=== PATIENT | female | born 1995 | race Caucasian/White ===

== ENCOUNTER 2017-04-11 23:40 | Emergency (ER) | payer OTHER ==
[~2017-04-11] VITALS: Ht 172.7 cm; Wt 56.7 kg
[2017-04-12] MEDS ORDERED: KEFLEX500 MG ORAL (00:15)
[2017-04-12] MEDS ORDERED: Cephalexin 500mg cap ORAL ONE (00:15)
--- NOTE | 2017-04-12 00:16 | Emergency Room Report ---
History of Present Illness General Chief Complaint: Female Urogenital Problems Source: Patient Present Illness HPI Is a 22-year-old female with chief complaint of urinary frequency and urgency. Onset for last 3 days. No hematuria. No back pain. No nausea no vomiting. Has history UTI in the past. She said she complaining of infected ingrown toenail. She gets this frequently. Is irritated. To the right great toe. She had partial nail removal before. Pain is severe Allergies: Coded Allergies: CLINDAMYCIN (Verified Allergy, Unknown, 04/11/17) IBUPROFEN (Verified Allergy, Unknown, 04/11/17) Patient History Past Medical History: see triage record, old chart reviewed Past Surgical History: none Pertinent Family History: none Social History: Denies: smoking Last Menstrual Period: 04/04/17 Now: No : 0 Para: 0 Immunizations: other Reviewed Nursing Documentation: PMH: Agreed, PSxH: Agreed Nursing Documentation-PMH Past Medical History: No History, Except For Hx Asthma: Yes Review of Systems Eye: Denies: eye pain, blurred vision ENT: Denies: ear pain, nose congestion, throat swelling Respiratory: Denies: cough, shortness of breath Cardiovascular: Denies: chest pain, palpitations Gastrointestinal: Denies: abdominal pain, diarrhea, nausea, vomiting Genitourinary: Reports: dysuria, frequency, urgency Musculoskeletal: Denies: back pain, joint pain Skin: Denies: rash Neurological: Denies: headache, numbness Endocrine: Denies: increased thirst, increased urine Hematologic/Lymphatic: Denies: easy bruising All Other Systems: negative except mentioned in HPI Physical Exam Vital Signs Date Time Temp Pulse Resp B/P (MAP) Pulse Ox O2 Delivery O2 Flow Rate FiO2 04/11/17 23:44 98.2 72 18 113/67 100 Room Air vitals normal Sp02 EP Interpretation: reviewed, normal General Appearance: well appearing, no apparent distress, alert Head: normocephalic, atraumatic Eyes: bilateral eye PERRL, bilateral eye EOMI ENT: hearing grossly normal, normal pharynx Neck: full range of motion, supple, no meningismus Respiratory: chest non-tender, lungs clear, normal breath sounds Cardiovascular #1: regular rate, rhythm, no murmur Gastrointestinal: normal bowel sounds, non tender, no mass, no organomegaly, no bruit, non-distended Musculoskeletal: back normal, gait/station normal, normal range of motion, other - Right great toe: There is irritation and mild discharge on the lateral aspect. Neurologic: alert, oriented x3 Psychiatric: mood/affect normal Skin: warm/dry Medical Decision Making Diagnostic Impression: Primary Impression: UTI (urinary tract infection) Qualified Codes: N30.00 - Acute cystitis without hematuria Additional Impression: Ingrown toenail of right foot with infection ER Course Patient with UTI. No evidence of pyelonephritis. She is in mild infected ingrown toenail. She does not want me to do procedure and it for now. Went to see if the antibiotics will help. Will return if not better. Last Vital Signs Date Time Temp Pulse Resp B/P (MAP) Pulse Ox O2 Delivery O2 Flow Rate FiO2 04/11/17 23:44 98.2 72 18 113/67 100 Room Air Status: improved Disposition: HOME, SELF-CARE Condition: Stable Scripts Cephalexin* (KEFLEX*) 500 Mg Capsule 500 MG ORAL TID, #21 CAP 0 Refills Prov: SHAHNAZ WOODALL M.D. 04/12/17 Patient Instructions: Urinary Tract Infection Additional Instructions: Followup with your DrHelen in 2-3 days. Return if symptom worsen. SHAHNAZ WOODALL M.D. Apr 12, 2017 00:16
[2017-04-12 00:20] VITALS: BP 113/67
== END 2017-04-12 00:20 | disposition home or self-care (01) ==
LOC: EMR 23:55
DX: N39.0 Urinary tract infection, site not specified (principal); L60.0 Ingrowing nail; J45.909 Unspecified asthma, uncomplicated; Z88.6 Allergy status to analgesic agent; Z88.1 Allergy status to other antibiotic agents
CPT/HCPCS: 99283

== ENCOUNTER 2017-04-23 23:33 | Emergency (ER) | payer OTHER ==
[~2017-04-23] VITALS: Ht 172.7 cm; Wt 56.7 kg
[~2017-04-23 23:33] MED LIST: KEFLEX500 MG ORAL
[2017-04-24] MEDS ORDERED: Fluconazole 100mg tab ORAL ONE (00:30)
[2017-04-24 00:38] VITALS: BP 125/66
[2017-04-24 00:39] VITALS: BP 1/1
--- NOTE | 2017-04-30 07:14 | Emergency Room Report ---
History of Present Illness General Chief Complaint: Female Urogenital Problems Source: Patient Present Illness HPI Patient is a 22-year-old female presented after increased vaginal discharge. Patient reported having recent urinary tract infection. Patient been started on antibiotics. She reported the dysuria is somewhat improved. She reports having increased thick white discharge. She thinks that she may have yeast infection. She denies any fever. She had not been vomiting. She denied any flank pain. Allergies: Coded Allergies: CLINDAMYCIN (Verified Allergy, Unknown, 04/11/17) IBUPROFEN (Verified Allergy, Unknown, 04/11/17) Patient History Past Medical History: see triage record Last Menstrual Period: 04/20/17 Now: No Reviewed Nursing Documentation: PMH: Agreed, PSxH: Agreed Nursing Documentation-PMH Past Medical History: No Stated History Hx Asthma: Yes Review of Systems All Other Systems: negative except mentioned in HPI Physical Exam Vital Signs Date Time Temp Pulse Resp B/P (MAP) Pulse Ox O2 Delivery O2 Flow Rate FiO2 04/23/17 23:52 98.2 74 15 125/66 99 Room Air Sp02 EP Interpretation: reviewed, normal General Appearance: normal inspection, well appearing, no apparent distress, alert, GCS 15 Head: atraumatic ENT: normal ENT inspection, hearing grossly normal, normal voice Neck: normal inspection, full range of motion, supple, no bony tend Respiratory: normal inspection, lungs clear, normal breath sounds, no respiratory distress, no retraction, no wheezing Cardiovascular #1: regular rate, rhythm, no edema Gastrointestinal: normal inspection, normal bowel sounds, non tender, soft, no guarding, no hernia Genitourinary: no CVA tenderness Musculoskeletal: normal inspection, back normal, normal range of motion Neurologic: normal inspection, alert, oriented x3, responsive, crop picker III-XII nml as tested, speech normal Psychiatric: normal inspection, judgement/insight normal, mood/affect normal Skin: normal inspection, normal color, no rash Medical Decision Making Diagnostic Impression: Primary Impression: Vaginitis ER Course Patient presented for dysuria. Differential diagnosis included was not limited to appendicitis, yeast infection, urinary tract infection, pelvic inflammatory disease, urethritis, herpes among others. The patient is being treated for a yeast infection. Patient is advised to have outpatient STD testing.The patient is advised to follow up with primary care doctor in 1-2 days. Patient is advised to return if any worsening condition or if any changes in status that are concerning. This report is dictated with [employer] senior wind energy consultant software which may occasionally lead to discrepancies related to use of this software. Last Vital Signs Date Time Temp Pulse Resp B/P (MAP) Pulse Ox O2 Delivery O2 Flow Rate FiO2 04/24/17 00:39 04/1704/24/17 00:38 98.2 15 99 Room Air 04/23/17 23:52 74 Status: improved Disposition: HOME, SELF-CARE Condition: Improved Referrals: [facility] RODRIG[facility],REFERERNA (PCP) Liam Pan DPM Patient Instructions: Ingrown Toenail, Vaginal Yeast Infection, Adult Nikolai Bailey Apr 30, 2017 07:14
== END 2017-04-24 00:40 | disposition home or self-care (01) ==
LOC: EMR 23:59
DX: N76.0 Acute vaginitis (principal); J45.909 Unspecified asthma, uncomplicated; Z88.6 Allergy status to analgesic agent; Z88.1 Allergy status to other antibiotic agents
CPT/HCPCS: 99283

== ENCOUNTER 2017-05-03 22:07 | Emergency (ER) | payer OTHER ==
[~2017-05-03] VITALS: Ht 172.7 cm; Wt 54.4 kg
[2017-05-03 22:30] VITALS: BP 110/68
[2017-05-03 22:43] LABS: APPEARANCE,URINE SLIGHTLY CLOUDY; BILIRUBIN, URINE NEGATIVE (NEGATIVE); COLOR,URINE YELLOW; GLUCOSE, URINE (UA) NEGATIVE (NEGATIVE); KETONES,URINE NEGATIVE (NEGATIVE); LEUKOCYTE ESTERASE ,URINE 1+ (NEGATIVE); NITRITE,URINE NEGATIVE (NEGATIVE); PH,URINE 7 (4.5-8.0); PROTEIN,URINE NEGATIVE (NEGATIVE); UROBILINOGEN,URINE 1 MG/DL (0.0-1.0)
--- NOTE | 2017-05-03 23:51 | Emergency Room Report ---
History of Present Illness General Chief Complaint: Female Urogenital Problems Source: Patient Present Illness HPI Is a 22-year-old female presents with chief complaint of dysuria. Onset for last 2 weeks. She was here 2 weeks ago for UTI symptoms. Her treat her with Keflex. She said she is infection and took a Diflucan. Symptom is still there. Her in sensation and discomfort with urination. Whitish discharge. No fever or chills. No nausea no vomiting. She had STD check about a month ago and everything was normal per patient. Denies any other complaint. No vaginal bleeding. No rash. Allergies: Coded Allergies: CLINDAMYCIN (Verified Allergy, Unknown, 04/11/17) IBUPROFEN (Verified Allergy, Unknown, 04/11/17) Patient History Past Medical History: see triage record, old chart reviewed Past Surgical History: none Pertinent Family History: none Social History: Denies: smoking Last Menstrual Period: 03/21/17 Now: No Immunizations: other Reviewed Nursing Documentation: PMH: Agreed, PSxH: Agreed Nursing Documentation-PMH Hx Asthma: Yes Review of Systems Eye: Denies: eye pain, blurred vision ENT: Denies: ear pain, nose congestion, throat swelling Respiratory: Denies: cough, shortness of breath Cardiovascular: Denies: chest pain, palpitations Gastrointestinal: Denies: abdominal pain, diarrhea, nausea, vomiting Genitourinary: Reports: dysuria Musculoskeletal: Denies: back pain, joint pain Skin: Denies: rash Neurological: Denies: headache, numbness Endocrine: Denies: increased thirst, increased urine Hematologic/Lymphatic: Denies: easy bruising All Other Systems: negative except mentioned in HPI Physical Exam Vital Signs Date Time Temp Pulse Resp B/P (MAP) Pulse Ox O2 Delivery O2 Flow Rate FiO2 05/03/17 22:23 98.2 76 20 105/63 97 Room Air vitals normal Sp02 EP Interpretation: reviewed, normal General Appearance: well appearing, no apparent distress, alert Head: normocephalic, atraumatic Eyes: bilateral eye PERRL, bilateral eye EOMI ENT: hearing grossly normal, normal pharynx Neck: full range of motion, supple, no meningismus Respiratory: chest non-tender, lungs clear, normal breath sounds Cardiovascular #1: regular rate, rhythm, no murmur Gastrointestinal: normal bowel sounds, non tender, no mass, no organomegaly, no bruit, non-distended Genitourinary: other - Pelvic exam done with female nurse as career technical supervisor. External exam normal. No rash. Internal exam show whitish discharge and thick white discharge on cervix. No adnexal mass. No cervical motion tenderness. Musculoskeletal: back normal, gait/station normal, normal range of motion Neurologic: alert, oriented x3 Psychiatric: mood/affect normal Skin: warm/dry Medical Decision Making Diagnostic Impression: Primary Impression: Bacterial vaginosis ER Course Patient with dysuria and has bacterial vaginosis. No evidence of urinary tract infection. No evidence of ectopic . We'll discharge home. Last Vital Signs Date Time Temp Pulse Resp B/P (MAP) Pulse Ox O2 Delivery O2 Flow Rate FiO2 05/03/17 22:30 98.1 77 18 110/68 99 Room Air Status: improved Disposition: HOME, SELF-CARE Condition: Stable Scripts Metronidazole* (FLAGYL*) 500 Mg Tablet 500 MG ORAL BID, #14 TAB Prov: SHAHNAZ WOODALL M.D. 05/04/17 Referrals: EMPLOYEE [facility],REFERRIN (PCP) Additional Instructions: Followup with your DrHelen in 7 days. Return if symptom worsen. No alcohol while on antibiotics. SHAHNAZ WOODALL M.D. May 03, 2017 23:51
[2017-05-04] MEDS ORDERED: METRONIDAZOLE500 MG ORAL (00:15)
[2017-05-04 00:20] VITALS: BP 115/72
[2017-05-04 00:25] VITALS: BP 115/72
== END 2017-05-04 00:25 | disposition home or self-care (01) ==
LOC: EMR 22:41
DX: N76.0 Acute vaginitis (principal); B96.89 Other specified bacterial agents as the cause of diseases classified elsewhere; J45.909 Unspecified asthma, uncomplicated
CPT/HCPCS: 81003; 81025; 87210; 99283

== ENCOUNTER 2017-05-27 23:37 | Emergency (ER) | payer OTHER ==
[~2017-05-27] VITALS: Ht 172.7 cm; Wt 54.4 kg
[~2017-05-27 23:37] MED LIST changes: +METRONIDAZOLE500 MG ORAL
[2017-05-27] MEDS ORDERED: NKM (23:53)
[2017-05-28 00:31] LABS: APPEARANCE,URINE CLEAR; BILIRUBIN, URINE NEGATIVE (NEGATIVE); COLOR,URINE PALE YELLOW; GLUCOSE, URINE (UA) NEGATIVE (NEGATIVE); KETONES,URINE NEGATIVE (NEGATIVE); LEUKOCYTE ESTERASE ,URINE 1+ (NEGATIVE); NITRITE,URINE NEGATIVE (NEGATIVE); PH,URINE 6 (4.5-8.0); PROTEIN,URINE NEGATIVE (NEGATIVE); UROBILINOGEN,URINE NORMAL MG/DL (0.0-1.0)
[2017-05-28] MEDS ORDERED: FLUCONAZOLE150 MG ORAL (01:55)
[2017-05-28] MEDS ORDERED: METRONIDAZOLE500 MG ORAL (01:55)
[2017-05-28 02:00] VITALS: BP 110/74
[2017-05-28 02:01] VITALS: BP 105/68
--- NOTE | 2017-05-28 05:03 | Emergency Room Report ---
History of Present Illness General Chief Complaint: Female Urogenital Problems Source: Patient Present Illness HPI 22-year-old female presents to ED for evaluation. States she's been having vaginal discharge for the last month. States it is watery, notes clumps of white. States she was here approximately one-month ago and was told that she had BV. Was discharged on antibiotics. States the symptoms have not resolved. States there is itchiness. Denies any dysuria or hematuria. No other aggravating relieving factors. Denies any other associated symptoms Allergies: Coded Allergies: CLINDAMYCIN (Verified Allergy, Unknown, 04/11/17) IBUPROFEN (Verified Allergy, Unknown, 04/11/17) Patient History Past Medical History: asthma Past Surgical History: none Pertinent Family History: none Social History: Denies: smoking, alcohol use, drug use Last Menstrual Period: 05/14/17 Now: No - Possible Immunizations: UTD Reviewed Nursing Documentation: PMH: Agreed, PSxH: Agreed Nursing Documentation-PMH Past Medical History: No History, Except For Hx Asthma: Yes Review of Systems All Other Systems: negative except mentioned in HPI Physical Exam Vital Signs Date Time Temp Pulse Resp B/P (MAP) Pulse Ox O2 Delivery O2 Flow Rate FiO2 05/27/17 23:49 98.1 74 16 105/68 99 Room Air Sp02 EP Interpretation: reviewed, normal General Appearance: no apparent distress, alert, GCS 15, non-toxic Head: normocephalic Eyes: bilateral eye normal inspection, bilateral eye PERRL ENT: normal ENT inspection Neck: normal inspection Respiratory: normal inspection Cardiovascular #1: normal inspection Gastrointestinal: normal inspection Rectal: deferred Genitourinary: no CVA tenderness, other - superior court justice present - white discharge noted Musculoskeletal: normal inspection Neurologic: alert, oriented x3, responsive, motor strength/tone normal, sensory intact, speech normal Psychiatric: normal inspection Skin: normal inspection Lymphatic: normal inspection Medical Decision Making Diagnostic Impression: Primary Impression: Vaginitis Qualified Codes: N76.1 - Subacute and chronic vaginitis ER Course Hospital Course 22-year-old female presents ED complaining of discharge unresolved with antibiotics Differential diagnoses include: UTI, cystitis, pyelonephritis Clinical course Patient placed on stretcher. After initial history and physical I ordered UA, urine . UA noted to be unremarkable. Reviewed EMR. wet mount from previous visit showed clue cells. patient subsequently discharged on Flagyl. Therapy Teacher present. We repeated wet mount and at this time shows no evidence of clue cells or other growth. However given persistent discharge we will prescribe another round of antibiotics and fluconazole for clinical yeast infection. I do recommend followup with [facility] if symptoms persist Diagnosis -vaginitis Stable and discharged home with prescriptions for Rx flagyl, fluconazole. Instructed to followup with PMD. Return to ED if symptoms recur or worsen Labs Test 05/27/17 23:54 Urine Color Pale yellow Urine Appearance Clear Urine pH 6 (4.5-8.0) Urine Specific [place] 1.015 (1.005-1.035) Urine Protein Negative (NEGATIVE) Urine Glucose (UA) Negative (NEGATIVE) Urine Ketones Negative (NEGATIVE) Urine Occult Blood Negative (NEGATIVE) Urine Nitrite Negative (NEGATIVE) Urine Bilirubin Negative (NEGATIVE) Urine Urobilinogen Normal MG/DL (0.0-1.0) Urine Leukocyte Esterase 1+ (NEGATIVE) Urine RBC 0-2 /HPF (0 - 2) Urine WBC 2-4 /HPF (0 - 2) Urine Squamous Epithelial Cells Moderate /LPF (NONE/OCC) Urine Bacteria Few /HPF (NONE) Urine HCG, Qualitative Negative Last Vital Signs Date Time Temp Pulse Resp B/P (MAP) Pulse Ox O2 Delivery O2 Flow Rate FiO2 05/28/17 02:01 98.1 16 105/68 99 Room Air 05/28/17 02:00 71 Status: improved Disposition: HOME, SELF-CARE Condition: Stable Scripts Fluconazole (FLUCONAZOLE) 150 Mg Tablet 150 MG ORAL ONCE for 2 Days, #2 TAB Prov: DEJON VOGEL M.D. 05/28/17 Metronidazole* (FLAGYL*) 500 Mg Tablet 500 MG ORAL THREE TIMES A DAY, #21 TAB Prov: DEJON VOGEL M.D. 05/28/17 Patient Instructions: Vaginitis DEJON VOGEL M.D. May 28, 2017 05:03
== END 2017-05-28 02:01 | disposition home or self-care (01) ==
LOC: EMR 05-28 00:10
DX: N76.1 Subacute and chronic vaginitis (principal); J45.909 Unspecified asthma, uncomplicated; Z88.1 Allergy status to other antibiotic agents; Z88.6 Allergy status to analgesic agent
CPT/HCPCS: 81003; 81025; 87210; 99284

== ENCOUNTER 2018-02-21 12:02 | Emergency (ER) | payer OTHER ==
[~2018-02-21] VITALS: Ht 172.7 cm; Wt 54.4 kg
[~2018-02-21 12:02] MED LIST changes: +FLUCONAZOLE150 MG ORAL; +NKM
[2018-02-21 12:09] VITALS: BP 112/71
[2018-02-21] MEDS ORDERED: Acetaminophen 500mg (ES) tab ORAL ONE (12:45)
[2018-02-21] MEDS ORDERED: Benzonatate 100mg Perles ORAL ONE (12:45)
--- NOTE | 2018-02-21 12:47 | Emergency Room Report ---
History of Present Illness General Chief Complaint: Flu Like Symptoms Source: Patient, Medical Record (Giuseppe Connolly) Present Illness HPI 22-year-old female patient presents ER complaining of cough for the past 2 weeks. Patient reports cough with sputum. Denies hemoptysis. Reports feeling congested. Reports cough has been improving however worse at night. Denies recent travel or periods of immobilization. denies history of cancer. Denies smoking. reports chest pain symptoms the past few days, arrives and worse with cough. Reports reproducible. Denies history of heart attack, heart disease. Reports hx of asthma when she was younger, denies use of inhaler or difficulty breathing.. Denies taking medication for relief of symptoms. Denies vomiting. Denies fever, breath, abdominal pain, vomiting, dysuria, hematuria, constipation, diarrhea. Also reports small "bumps" on upper back bilaterally. Reports pruritic. reports use of new soaps and conditioners home. Denies bleeding or drainage. denies blurred vision, eye itchiness or redness. Patient did not complain of eye swelling, contrary to triage report. Denies sore throat. (Giuseppe Connolly) Allergies: Coded Allergies: CLINDAMYCIN (Verified Allergy, Unknown, 04/11/17) IBUPROFEN (Verified Allergy, Unknown, 04/11/17) Patient History Past Medical History: see triage record Last Menstrual Period: 01/29/18 Reviewed Nursing Documentation: PMH: Agreed; PSxH: Agreed (Giuseppe Connolly) Nursing Documentation-PMH Past Medical History: No Stated History Hx Asthma: Yes (Giuseppe Connolly) Review of Systems All Other Systems: negative except mentioned in HPI (Giuseppe Connolly P.Richard) Physical Exam Vital Signs Date Time Temp Pulse Resp B/P (MAP) Pulse Ox O2 Delivery O2 Flow Rate FiO2 02/21/18 12:09 98.2 73 18 112/71 100 Room Air Sp02 EP Interpretation: reviewed, normal General Appearance: well appearing, no apparent distress, alert, GCS 15, non- toxic Head: normocephalic, atraumatic Eyes: bilateral eye normal inspection, bilateral eye PERRL ENT: hearing grossly normal, normal pharynx, no angioedema, normal voice, TMs + canals normal, uvula midline, moist mucus membranes, nasal congestion Neck: full range of motion, no bony tend Respiratory: lungs clear, normal breath sounds, no rhonchi, no respiratory distress, no accessory muscle use, no wheezing, speaking full sentences, other - no stridor, chest tender to palpation, no bony depression, no for shortness, equal and symmetrical chest wall movements Cardiovascular #1: regular rate, rhythm, no edema Gastrointestinal: non tender, soft, no mass, non-distended, no guarding, no rebound Genitourinary: no CVA tenderness Musculoskeletal: back normal, digits/nails normal, gait/station normal, normal range of motion, non-tender, no calf tenderness, Beto's Sign negative Neurologic: alert, oriented x3, responsive, motor strength/tone normal, sensory intact Psychiatric: mood/affect normal Skin: other - 2 mm erythematous macules x4 on posterior upper back, no surrounding erythema or edema, no fluctuance or induration, no blood or ecchymosis Lymphatic: no adenopathy (Giuseppe Connolly.AHelen) Medical Decision Making PA Attestation Dr. Finnegan is my supervising Physician whom patient management has been discussed with. (Giuseppe Connolly P.AHelen) Diagnostic Impression: Primary Impression: Upper respiratory infection Additional Impression: Contact dermatitis ER Course Pt presents to ED c/o cough, small bumps on back. DDX considered but are not limited to influenza, viral URI, pneumonia, MD, strep throat, rhinitis, sinusitis, otitis media, otitis externa, cellulitis, ezcema, contact dermatitis, shingles. On PE, chest is TTP; chest pain likely musculoskeletal in nature secondary to cough, no hx of MD or CHF or heart disease, does not require cardiac workup at this time, low suspicion for MD. Patient instructed to take NSAIDs as needed for pain symptoms. VITAL SIGNS are WNL, patient is afebrile. ER COURSE: physical exam shows small skin irritation on of her back bilaterally consistent with contact dermatitis. Provided patient with hydrocortisone cream. No signs of cellulitis or abscess. Does not require antibiotics at this time. Follow- up with dermatology. AVoid use of new conditioners or soaps with scents or perfumes added. Lungs clear to auscultation, no wheezes, rhonci or rales. patient afebrile. CXR negative for acute disease. Low suspicion for pneumonia. Follow-up in one week if symptoms do not improve discuss antibiotic use. no obvious signs on physical exam consistent with bacterial infection, does not require antibiotics at this time. Likely viral etiology of symptoms. patient did not cough while in the ER. Symptomatic treatment. drink plenty of fluids. Salt water gargles for sore throat. Due to history of asthma patient with albuterol inhaler. Follow-up with primary care provider for further testing and treatment. Patient not wheezing in the ER, does not require breathing treatment currently. Followup with PCP for further treatment and/or referral as needed. ER precautions given. Patient did not cough while in the ER. DISCHARGE: -Rx given for Tylenol/Acetaminophen -Rx given for Tessalon Perles for cough sx. -Rx given for albuterol -Rx given for Sudafed -Rx given for hydrocortisone At this time pt is stable for d/c to home. Patient is resting comfortably, in no acute distress, nontoxic appearing. Patient to take medications as instructed Will provide with patient care instructions and any necessary prescriptions. Care plan and follow-up instructions provided. Patient instructed to follow-up with primary care provider in 3 - 5 days. Patient questions asked and answered. Patient reports understanding and agreement to treatment plan. ER precautions given. Patient instructed to return to ER immediately for any new or worsening of symptoms including but not limited to increasing SOB, persistent fever, intractable vomiting. - Please note that this Emergency Department Report was dictated using [employer] engineer technology software, occasionally this can lead to erroneous entry secondary to interpretation by the dictation equipment. (Giuseppe Connolly P.A.) Chest X-Ray Diagnostic Results Chest X-Ray Diagnostic Results : Chest X-Ray Ordered: Yes # of Views/Limited/Complete: 1 View Indication: Chest Pain EP Interpretation: Yes PA Xray: Interpretation reviewed, by supervising MD, and agrees with findings. Interpretation: no consolidation, no effusion, no pneumothorax, no acute cardiopulmonary disease Impression: No acute disease PA Scribe Text Lemuel Connolly PA-C (Giuseppe Connolly P.A.) Chest X-Ray Diagnostic Results : Electronically Signed by: Van documentation reviewed by and is accurate, Dakota Finnegan MD. (Dakota Finnegan MD) Last Vital Signs Date Time Temp Pulse Resp B/P (MAP) Pulse Ox O2 Delivery O2 Flow Rate FiO2 02/21/18 12:09 98.2 73 18 112/71 100 Room Air Status: improved (Giuseppe Connolly) Disposition: HOME, SELF-CARE Condition: Stable Scripts Hydrocortisone (Hydrocortisone Cream 2.5%) Y Cream.appl 1 APPLIC TP BID, #28 GM Prov: Giuseppe Connolly 02/21/18 D-Methorphan/PE/Acetaminophen (Sudafed PE Pressure+Pain+Cough) 1 Each Tablet 1 EACH PO BID, #24 TAB Prov: Giuseppe Connolly 02/21/18 Albuterol Sulfate* (ALBUTEROL SULFATE MDI*) 8.5 Gm Hfa.aer.ad 2 PUFF INH Q6H, #1 INH 0 Refills Prov: Giuseppe Connolly 02/21/18 Acetaminophen* (TYLENOL EXTRA STRENGTH*) 500 Mg Tablet 500 MG ORAL Q8H PRN for Prn Headache/Temp > 101, #30 TAB 0 Refills Prov: Giuseppe Connolly 02/21/18 Benzonatate* (TESSALON PERLE*) 100 Mg Capsule 100 MG ORAL THREE TIMES A DAY, #30 PERLE Prov: Giuseppe Connolly 02/21/18 Referrals: [facility],REFERRING (PCP) Patient Instructions: Contact Dermatitis, [id number], Costochondritis, Easy- to-Read, Upper Respiratory Infection, Adult, [id number] Additional Instructions: Followup with primary care provider in 3 -5 days. Request referral to dermatology as needed. Do not scratch or itch. Apply cool compresses to affected area. Take medications as directed. Do not apply topical steroid medication to face or skin creases. SE Benadryl drowsiness, do not take prior to drinking, driving, operating heavy machinery. Take Claritin during the day and Benadryl at night for itching symptoms. Patient questions asked and answered. ER precautions given, patient instructed to return to ER immediately for any new or worsening of symptoms. [facility] Giuseppe Connolly Feb 21, 2018 12:47 Dakota Finnegan MD Feb 22, 2018 19:44
[2018-02-21] MEDS ORDERED: TESSALON PERLE100 MG ORAL (13:18)
[2018-02-21] MEDS ORDERED: TYLENOL EXTRA500 MG ORAL (13:18)
[2018-02-21] MEDS ORDERED: SUDAFED PE PRE1 EACH PO (13:18)
[2018-02-21] MEDS ORDERED: ALBUTEROL SULF8.5 GM INH (13:18)
[2018-02-21] MEDS ORDERED: HYDROCORTISONE30 G2 TP (13:20)
[2018-02-21 13:25] VITALS: BP 112/71
--- NOTE | 2018-02-21 13:52 | Diagnostic Imaging Report ---
Indication: Dyspnea Comparison: None A single view chest radiograph was obtained. Findings: Cardiomediastinal appearance is within normal limits for age. The lungs are clear. Pulmonary vascularity is appropriate. The diaphragmatic contour is smooth and costophrenic angles are sharp. No pleural effusions are identified. The bones are unremarkable. Impression: No acute findings
== END 2018-02-22 00:03 | disposition home or self-care (01) ==
LOC: EMR 12:40
DX: J06.9 Acute upper respiratory infection, unspecified (principal); L25.9 Unspecified contact dermatitis, unspecified cause; J45.909 Unspecified asthma, uncomplicated; Z88.6 Allergy status to analgesic agent; Z88.1 Allergy status to other antibiotic agents
CPT/HCPCS: 71045; 99283

== ENCOUNTER 2018-04-07 20:42 | Emergency (ER) | payer OTHER ==
[~2018-04-07] VITALS: Ht 172.7 cm; Wt 54.4 kg
[~2018-04-07 20:42] MED LIST changes: +ALBUTEROL SULF8.5 GM INH; +HYDROCORTISONE30 G2 TP; +SUDAFED PE PRE1 EACH PO; +TESSALON PERLE100 MG ORAL; +TYLENOL EXTRA500 MG ORAL
[2018-04-07 21:03] VITALS: BP 118/73
--- NOTE | 2018-04-07 21:09 | Emergency Room Report ---
History of Present Illness General Chief Complaint: Female Urogenital Problems Source: Patient, Medical Record Present Illness HPI Is a 23-year-old female with no past medical history. She presents with chief complaint of vaginal discharge and dysuria. Onset for last 5 days. Discharge is whitish and cottage cheesy in nature. She is sexually active with one partner. No protection. Denies any recent antibiotics. No douching. History of these infection and bacterial vaginosis. Nothing made it better. Urination made it worse. Allergies: Coded Allergies: CLINDAMYCIN (Verified Allergy, Unknown, 04/11/17) IBUPROFEN (Verified Allergy, Unknown, 04/11/17) LATEX (Verified Allergy, Unknown, 04/07/18) Patient History Past Medical History: none, see triage record, old chart reviewed Past Surgical History: none Pertinent Family History: none Social History: Denies: smoking Last Menstrual Period: 03/12/2018 Now: No : 0 Para: 0 Immunizations: other Reviewed Nursing Documentation: PMH: Agreed; PSxH: Agreed Nursing Documentation-PMH Past Medical History: No History, Except For Hx Asthma: Yes Review of Systems Eye: Denies: eye pain, blurred vision ENT: Denies: ear pain, nose congestion, throat swelling Respiratory: Denies: cough, shortness of breath Cardiovascular: Denies: chest pain, palpitations Gastrointestinal: Denies: abdominal pain, diarrhea, nausea, vomiting Genitourinary: Reports: discharge Musculoskeletal: Denies: back pain, joint pain Skin: Denies: rash Neurological: Denies: headache, numbness Endocrine: Denies: increased thirst, increased urine Hematologic/Lymphatic: Denies: easy bruising All Other Systems: negative except mentioned in HPI Physical Exam Vital Signs Date Time Temp Pulse Resp B/P (MAP) Pulse Ox O2 Delivery O2 Flow Rate FiO2 04/07/18 20:51 98.1 76 16 118/73 99 04/07/18 21:03 Room Air vitals normal Sp02 EP Interpretation: reviewed, normal General Appearance: well appearing, no apparent distress, alert Head: normocephalic, atraumatic Eyes: bilateral eye PERRL, bilateral eye EOMI ENT: hearing grossly normal, normal pharynx Neck: full range of motion, supple, no meningismus Respiratory: chest non-tender, lungs clear, normal breath sounds Cardiovascular #1: regular rate, rhythm, no murmur Gastrointestinal: normal bowel sounds, non tender, no mass, no organomegaly, no bruit, non-distended Genitourinary: other - Pelvic exam done with female nurse as veneer glue jointer feedback. External exam normal. Internal exam showed yellowish discharge. No cervical motion tenderness. No adnexal tenderness. Musculoskeletal: back normal, gait/station normal, normal range of motion Psychiatric: mood/affect normal Skin: warm/dry Medical Decision Making Diagnostic Impression: Primary Impression: Vaginitis Qualified Codes: N76.0 - Acute vaginitis Additional Impression: Bacterial vaginosis ER Course Patient present with discharge. Based on the color in the amount, could be gonorrhea. Patient given Rocephin. I will send culture for gonorrhea and Chlamydia. We'll go ahead and treat for bacterial vaginosis also. No evidence of any ectopic. Recommend outpatient testing for HIV, hepatitis, syphilis and other STD as an outpatient. Since she is sexually active, also recommend yearly Pap smear. Last Vital Signs Date Time Temp Pulse Resp B/P (MAP) Pulse Ox O2 Delivery O2 Flow Rate FiO2 04/07/18 21:03 98.1 76 16 118/73 99 Room Air Status: improved Disposition: HOME, SELF-CARE Condition: Stable Scripts Metronidazole* (FLAGYL*) 500 Mg Tablet 500 MG ORAL BID, #14 TAB Prov: Jean Carlos Parr MD 04/07/18 Additional Instructions: Follow-up with your doctor in 7 days. Recommend outpatient testing for HIV, hepatitis, syphilis, and other STDs. Also recommend yearly Pap smear and your sexually active. Return if symptom worsen. Jean Carlos Parr MD Apr 07, 2018 21:09
[2018-04-07 21:12] LABS: APPEARANCE,URINE CLEAR; BILIRUBIN, URINE NEGATIVE (NEGATIVE); COLOR,URINE PALE YELLOW; GLUCOSE, URINE (UA) NEGATIVE (NEGATIVE); KETONES,URINE NEGATIVE (NEGATIVE); LEUKOCYTE ESTERASE ,URINE NEGATIVE (NEGATIVE); NITRITE,URINE NEGATIVE (NEGATIVE); PH,URINE 7 (4.5-8.0); PROTEIN,URINE NEGATIVE (NEGATIVE); UROBILINOGEN,URINE NORMAL MG/DL (0.0-1.0)
[2018-04-07] MEDS ORDERED: METRONIDAZOLE500 MG ORAL (21:39)
[2018-04-07] MEDS: Lidocaine 1% MPF 10mg/ml 5ml INJ ONE (21:41)
[2018-04-07 21:51] VITALS: BP 118/73
== END 2018-04-07 21:45 | disposition home or self-care (01) ==
LOC: EMR 21:05
DX: N76.0 Acute vaginitis (principal); N89.8 Other specified noninflammatory disorders of vagina; R30.0 Dysuria; Z88.8 Allergy status to other drugs, medicaments and biological substances; Z91.040 Latex allergy status
CPT/HCPCS: 81003; 81025; 87210; 87491; 87590; 96372; 99284; J0696

== ENCOUNTER 2018-05-28 13:09 | Emergency (ER) | payer OTHER ==
[~2018-05-28] VITALS: Ht 172.7 cm; Wt 54.4 kg
[2018-05-28 14:20] VITALS: BP 122/74
--- NOTE | 2018-05-28 14:20 | NUR ---
ED Nurse Note: Pt aao x4 walked in to ER c/o abdominal pain for 3 days rating at 8/10. pt calm and cooperative. skin clean and intact and VSS.
[2018-05-28] MEDS ORDERED: Lidocaine 2% Visc 15ml soln ORAL ONE (14:30)
[2018-05-28] MEDS ORDERED: Mylanta II UD 30ml ORAL ONE (14:30)
[2018-05-28] MEDS ORDERED: Dicyclomine HCl 10mg/5ml oral soln ORAL ONE (14:30)
[2018-05-28 14:37] LABS: APPEARANCE,URINE CLOUDY; BILIRUBIN, URINE NEGATIVE (NEGATIVE); GLUCOSE, URINE (UA) NEGATIVE (NEGATIVE); KETONES,URINE 2+ (NEGATIVE); LEUKOCYTE ESTERASE ,URINE 1+ (NEGATIVE); NITRITE,URINE NEGATIVE (NEGATIVE); PH,URINE 7 (4.5-8.0); PROTEIN,URINE NEGATIVE (NEGATIVE); UROBILINOGEN,URINE 4 MG/DL (0.0-1.0)
[2018-05-28 14:38] LABS: COLOR,URINE YELLOW
[2018-05-28] MEDS ORDERED: ONDANSETRON ODT4 MG BC (14:39)
[2018-05-28] MEDS ORDERED: DICYCLOMINE HCL10 MG PO (14:39)
[2018-05-28] MEDS ORDERED: RANITIDINE HCL150 MG ORAL (14:39)
[2018-05-28 15:30] VITALS: BP 122/71
--- NOTE | 2018-05-28 15:30 | NUR ---
ED Nurse Note: Lab orders were canceled after pt talked to Dr. Martini. All the previous orders were canceled. Pt received prescriptions and discharge instruction and verbalized understanding. pt ambulated to be discharged. id band removed.
--- NOTE | 2018-05-28 16:55 | Emergency Room Report ---
History of Present Illness General Chief Complaint: Abdominal Pain Source: Patient Present Illness HPI 23-year-old female presents ED for evaluation. Patient complaining of cramping abdominal pain with loose stools 3 days. Pain is cramping, 8 out of 10, nonradiating. Denies nausea or vomiting. Denies fevers or chills. States symptoms started after she had a questionable hamburger. Denies sick contacts or recent travel. Denies recent antibiotic use. No other aggravating relieving factors. Denies any other associated symptoms Allergies: Coded Allergies: CLINDAMYCIN (Verified Allergy, Unknown, 04/11/17) IBUPROFEN (Verified Allergy, Unknown, 04/11/17) LATEX (Verified Allergy, Unknown, 04/07/18) Patient History Past Medical History: asthma Past Surgical History: other - breast implant removal Pertinent Family History: none Social History: Denies: smoking, alcohol use, drug use Last Menstrual Period: Now: No Immunizations: UTD Reviewed Nursing Documentation: PMH: Agreed; PSxH: Agreed Nursing Documentation-PMH Past Medical History: No History, Except For Hx Asthma: Yes Review of Systems All Other Systems: negative except mentioned in HPI Physical Exam Vital Signs Date Time Temp Pulse Resp B/P (MAP) Pulse Ox O2 Delivery O2 Flow Rate FiO2 05/28/18 13:55 98.1 69 18 127/ 98 Room Air Sp02 EP Interpretation: reviewed, normal General Appearance: no apparent distress, alert, GCS 15, non-toxic Head: normocephalic Eyes: bilateral eye normal inspection, bilateral eye PERRL ENT: normal ENT inspection Neck: normal inspection Respiratory: chest non-tender, lungs clear, normal breath sounds, speaking full sentences Cardiovascular #1: regular rate, rhythm, no edema Gastrointestinal: normal bowel sounds, soft, non-distended, no guarding, no rebound, tenderness - cramping Rectal: deferred Genitourinary: no CVA tenderness Musculoskeletal: normal inspection Neurologic: alert, oriented x3, responsive, motor strength/tone normal, sensory intact, speech normal Psychiatric: normal inspection Skin: normal inspection Lymphatic: normal inspection Medical Decision Making Diagnostic Impression: Primary Impression: Gastroenteritis ER Course Hospital Course 23-year-old F presents to ED with cramping abdominal pain with diarrhea differential diagnosis: gastritis, SBO, cholecystits, gastroenteritis Clinical course Patient placed on stretcher. On lunchroom monitor. After initial history and physical exam reveals young female in no acute distress. Abdomen soft. No guarding or rebound. No flank pain. Vital stable. Patient afebrile, nontoxic-appearing. Likely viral gastroenteritis which be self-limited. Reassurance given. Offered option for IV access. Patient declined. Patient states she will take the medications as prescribed Safe for discharge with close outpatient follow-up. Patient has a PMD I feel this is a highly complex case requiring extensive working including EKG/ Rhythm strip, Xray/CT/US, Blood/urine lab work, repeat exams while in ED, and administration of strong opiates/narcotics for pain control, admission to hospital or close patient follow up. Diagnosis - gastroenteritis Stable and discharged to home with prescriptions for Zantac, zofran, bentyl. Followup with PMD. Return to ED if symptoms recur or worsen Labs Test 05/28/18 14:00 Urine Color Yellow Urine Appearance Cloudy Urine pH 7 (4.5-8.0) Urine Specific [place] 1.010 (1.005-1.035) Urine Protein Negative (NEGATIVE) Urine Glucose (UA) Negative (NEGATIVE) Urine Ketones 2+ (NEGATIVE) Urine Blood Negative (NEGATIVE) Urine Nitrite Negative (NEGATIVE) Urine Bilirubin Negative (NEGATIVE) Urine Urobilinogen 4 MG/DL (0.0-1.0) Urine Leukocyte Esterase 1+ (NEGATIVE) Urine RBC 0-2 /HPF (0 - 2) Urine WBC 0-2 /HPF (0 - 2) Urine Squamous Epithelial Cells Few /LPF (NONE/OCC) Urine Amorphous Sediment Many /LPF (NONE) Urine Bacteria Few /HPF (NONE) Urine HCG, Qualitative Negative (NEGATIVE) Last Vital Signs Date Time Temp Pulse Resp B/P (MAP) Pulse Ox O2 Delivery O2 Flow Rate FiO2 05/28/18 13:55 98.1 69 18 127/ 98 Room Air Status: improved Disposition: HOME, SELF-CARE Condition: Stable Scripts Ranitidine Hcl* (ZANTAC*) 150 Mg Tablet 150 MG ORAL TWICE A DAY, #30 TAB Prov: Joshua Martini MD 05/28/18 Ondansetron Odt* (ZOFRAN ODT*) 4 Mg Tab.rapdis 4 MG BC EVERY 8 HOURS, #10 TAB 0 Refills Prov: Joshua Martini MD 05/28/18 Dicyclomine Hcl* (DICYCLOMINE HCL*) 10 Mg Capsule 10 MG PO QID for 5 Days, CAP Prov: Joshua Martini MD 05/28/18 Referrals: [facility] (PCP) Patient Instructions: Viral Gastroenteritis, Adult, [id number] Joshua Martini MD May 28, 2018 16:55
== END 2018-05-28 15:30 | disposition home or self-care (01) ==
LOC: EMR 14:26
DX: K52.9 Noninfective gastroenteritis and colitis, unspecified (principal); J45.909 Unspecified asthma, uncomplicated; Z88.6 Allergy status to analgesic agent; Z88.1 Allergy status to other antibiotic agents; Z91.040 Latex allergy status
CPT/HCPCS: 81003; 81025; 96374; 96375; 99284

== ENCOUNTER 2018-07-29 15:13 | Emergency (ER) | payer OTHER ==
[~2018-07-29] VITALS: Ht 172.7 cm; Wt 54.4 kg
[~2018-07-29 15:13] MED LIST changes: +DICYCLOMINE HCL10 MG PO; +ONDANSETRON ODT4 MG BC; +RANITIDINE HCL150 MG ORAL
--- NOTE | 2018-07-29 15:44 | NUR ---
ED Nurse Note: pt walked in with spouse due approx 6 weeks and having sharp LLQ pain. denies vaginal bleeding. pt denies vomiting. denies constipation nor diarrhea.. NATHAN chan on bedside. with new order. blood drawn and was sent to lab. pt able to give urine sample and was sent to lab. will continue to monitor.
[2018-07-29 16:00] LABS: APPEARANCE,URINE CLEAR; BILIRUBIN, URINE NEGATIVE (NEGATIVE); GLUCOSE, URINE (UA) NEGATIVE (NEGATIVE); KETONES,URINE NEGATIVE (NEGATIVE); LEUKOCYTE ESTERASE ,URINE NEGATIVE (NEGATIVE); NITRITE,URINE NEGATIVE (NEGATIVE); PH,URINE 5 (4.5-8.0); PROTEIN,URINE NEGATIVE (NEGATIVE); UROBILINOGEN,URINE NORMAL MG/DL (0.0-1.0)
[2018-07-29 16:07] LABS: BASOPHILS % (AUTO) 0.7 % (0.0-2.0); EOSINOPHILS % (AUTO) 4.3 % (0.0-3.0); HEMATOCRIT 34.1 % (37.0-47.0); HEMOGLOBIN 11.6 G/DL (12.0-16.0); LYMPHOCYTES % (AUTO) 24.5 % (20.0-45.0); MEAN CORPUSCULAR VOLUME 91 FL (80-99); NEUTROPHILS % (AUTO) 64.4 % (45.0-75.0); PLATELET COUNT 166 K/UL (150-450); RED BLOOD COUNT 3.75 M/UL (4.20-5.40); RED CELL DISTRIBUTION WIDTH 11.2 % (11.6-14.8)
--- NOTE | 2018-07-29 16:07 | NUR ---
ED Nurse Note: pt went down to us with tech
[2018-07-29 16:09] LABS: INR 1.1 (0.9-1.1)
[2018-07-29 16:10] LABS: COLOR,URINE YELLOW
[2018-07-29 16:21] LABS: ANION GAP 10 mmol/L (5-15); BLOOD UREA NITROGEN 9 mg/dL (7-18); CALCIUM 8.7 MG/DL (8.5-10.1); CARBON DIOXIDE 25 MMOL/L (21-32); CHLORIDE 103 MMOL/L (98-107); CREATININE 0.7 MG/DL (0.55-1.30); POTASSIUM 3.6 MMOL/L (3.5-5.1); SODIUM 138 MMOL/L (136-145)
[2018-07-29 16:27] LABS: ALANINE AMINOTRANSFERASE 14 U/L (12-78); ALBUMIN 3.6 G/DL (3.4-5.0); ALBUMIN/GLOBULIN RATIO 1.2 (1.0-2.7); ALKALINE PHOSPHATASE 49 U/L (46-116); ASPARTATE AMINO TRANSFERASE 12 U/L (15-37); BILIRUBIN,TOTAL 0.5 MG/DL (0.2-1.0)
--- NOTE | 2018-07-29 16:50 | NUR ---
ED Nurse Note: pt came back from us with spouse and tech.
[2018-07-29] MEDS ORDERED: ZOFRAN4 M3 ORAL (17:14)
[2018-07-29] MEDS ORDERED: PYRIDOXINE HCL50 MG ORAL (17:14)
[2018-07-29 17:22] VITALS: BP 106/71
--- NOTE | 2018-07-29 17:22 | NUR ---
ER DISCHARGE NOTE: Patient is cleared to be discharged per ERMD, pt is aox4, on room air, with stable vital signs. pt was given dc and prescription instructions, pt was able to verbalize understanding, pt id band removed without complications. pt is able to ambulate with steady gait. pt took all belongings.
--- NOTE | 2018-07-29 20:39 | Emergency Room Report ---
History of Present Illness General Chief Complaint: Complications Source: Patient Present Illness HPI Patient is a 23-year-old female presenting for left lower abdominal cramping. She states that her last normal menstrual period was June 13 and she has tested positive for urine test at home and at urgent care. She states that she has intermittent left lower abdominal cramping described as an 8 out of 10 and lasts for approximately one to 5 minutes. This has been ongoing for the past one week. She denies radiating pain. She denies other symptoms including vomiting, fever, chills, back pain, dysuria, vaginal discharge, vaginal bleeding, headache, dizziness, blurred vision She does admit to nausea but denies vomiting Allergies: Coded Allergies: CLINDAMYCIN (Verified Allergy, Unknown, 04/11/17) IBUPROFEN (Verified Allergy, Unknown, 04/11/17) LATEX (Verified Allergy, Unknown, 04/07/18) Patient History Past Medical History: see triage record Pertinent Family History: none Last Menstrual Period: - Now: Yes : 1 Para: 0 Reviewed Nursing Documentation: PMH: Agreed; PSxH: Agreed Nursing Documentation-PMH Past Medical History: No History, Except For Hx Asthma: Yes Review of Systems All Other Systems: negative except mentioned in HPI Physical Exam Vital Signs Date Time Temp Pulse Resp B/P (MAP) Pulse Ox O2 Delivery O2 Flow Rate FiO2 07/29/18 15:18 97.9 83 20 106/71 98 Sp02 EP Interpretation: reviewed, normal General Appearance: no apparent distress, alert, GCS 15, non-toxic Head: normocephalic, atraumatic Respiratory: chest non-tender, lungs clear, normal breath sounds, speaking full sentences Cardiovascular #1: regular rate, rhythm, no edema Gastrointestinal: normal bowel sounds, non tender, soft, non-distended, no guarding, no rebound Genitourinary: no CVA tenderness Musculoskeletal: back normal, gait/station normal, normal range of motion, non- tender Neurologic: alert, oriented x3, responsive, motor strength/tone normal, sensory intact, speech normal Psychiatric: judgement/insight normal, memory normal, mood/affect normal, no suicidal/homicidal ideation Skin: normal color, no rash, warm/dry, well hydrated Medical Decision Making PA Attestation Dr. Polanco is my supervising physician. Patient management was discussed with my supervising physician Diagnostic Impression: Primary Impression: related nausea, antepartum Additional Impression: First trimester ER Course Patient is a 23-year-old female presenting for left lower abdominal cramping. Differential diagnoses considered include but not limited to Early , threatened , incomplete , ectopic , hemorrhagic cyst PE: Afebrile. NAD RRR Lungs CTA bilat Abdomen is soft and nontender. Normal bowel sounds Beta Quant approximately 151,000 OB US: There is a single IUP approximately 6 weeks and 5 days by measurement. heart tones around 125 BPM The patient and her male partner are informed of these results. She is to continue using vitamins. She is given prescription for vitamin B6 for nausea. If this does not help, she is told to use Zofran. She will follow-up with her OBGYN this week as discussed. ER precautions given including if abdominal pain worsens, she has vaginal discharge, or notices vaginal bleeding Laboratory Tests Test 07/29/18 15:45 White Blood Count 8.0 K/UL (4.8-10.8) Red Blood Count 3.75 M/UL (4.20-5.40) L Hemoglobin 11.6 G/DL (12.0-16.0) L Hematocrit 34.1 % (37.0-47.0) L Mean Corpuscular Volume 91 FL (80-99) Mean Corpuscular Hemoglobin 31.0 PG (27.0-31.0) Mean Corpuscular Hemoglobin Concent 34.1 G/DL (32.0-36.0) Red Cell Distribution Width 11.2 % (11.6-14.8) L Platelet Count 166 K/UL (150-450) Mean Platelet Volume 6.8 FL (6.5-10.1) Neutrophils (%) (Auto) 64.4 % (45.0-75.0) Lymphocytes (%) (Auto) 24.5 % (20.0-45.0) Monocytes (%) (Auto) 6.0 % (1.0-10.0) Eosinophils (%) (Auto) 4.3 % (0.0-3.0) H Basophils (%) (Auto) 0.7 % (0.0-2.0) Prothrombin Time 11.8 SEC (9.30-11.50) H Prothrombin Time INR 1.1 (0.9-1.1) PTT 29 SEC (23-33) Urine Color Yellow Urine Appearance Clear Urine pH 5 (4.5-8.0) Urine Specific [place] 1.025 (1.005-1.035) Urine Protein Negative (NEGATIVE) Urine Glucose (UA) Negative (NEGATIVE) Urine Ketones Negative (NEGATIVE) Urine Blood Negative (NEGATIVE) Urine Nitrite Negative (NEGATIVE) Urine Bilirubin Negative (NEGATIVE) Urine Urobilinogen Normal MG/DL (0.0-1.0) Urine Leukocyte Esterase Negative (NEGATIVE) Sodium Level 138 MMOL/L (136-145) Potassium Level 3.6 MMOL/L (3.5-5.1) Chloride Level 103 MMOL/L (98-107) Carbon Dioxide Level 25 MMOL/L (21-32) Anion Gap 10 mmol/L (5-15) Blood Urea Nitrogen 9 mg/dL (7-18) Creatinine 0.7 MG/DL (0.55-1.30) Estimate Glomerular Filtration Rate > 60 mL/min (>60) Glucose Level 90 MG/DL (74-106) Calcium Level 8.7 MG/DL (8.5-10.1) Total Bilirubin 0.5 MG/DL (0.2-1.0) Aspartate Amino Transferase (AST) 12 U/L (15-37) L Alanine Aminotransferase (ALT) 14 U/L (12-78) Alkaline Phosphatase 49 U/L (46-116) Total Protein 6.7 G/DL (6.4-8.2) Albumin 3.6 G/DL (3.4-5.0) Globulin 3.1 g/dL Albumin/Globulin Ratio 1.2 (1.0-2.7) Lipase 121 U/L (73-393) Human Chorionic Gonadotropin, Quant 734529 mIU/mL (1-6) H Lab Results Impression No leukocytosis Urinalysis unremarkable. No hematuria or signs of infection. Beta hCG approximately 151,000 CT/MRI/US Diagnostic Results CT/MRI/US Diagnostic Results : Imaging Test Ordered: OB US Impression There is a single IUP approximately 6 weeks and 5 days by measurement. heart tones around 125 BPM Last Vital Signs Date Time Temp Pulse Resp B/P (MAP) Pulse Ox O2 Delivery O2 Flow Rate FiO2 07/29/18 17:22 97.9 20 106/71 98 07/29/18 15:18 83 Status: improved Disposition: HOME, SELF-CARE Condition: Improved Scripts Ondansetron* (ZOFRAN*) 4 Mg Tablet 4 MG ORAL Q6H PRN for Nausea & Vomiting, #15 TAB Prov: TREE TRAVIS.AHelen 07/29/18 Pyridoxine Hcl* (VITAMIN B-6*) 50 Mg Tablet 50 MG ORAL Q8HR, #30 TAB 0 Refills Prov: TREE TRAVIS 07/29/18 Patient Instructions: Morning Sickness, First Trimester of Additional Instructions: Please follow-up with your [facility] as soon as possible. Return to the emergency department if you notice symptoms including worsening abdominal pain, vaginal bleeding, other vaginal discharge, fever, or any other symptoms TREE TRAVIS Jul 29, 2018 20:39
--- NOTE | 2018-07-30 10:23 | Diagnostic Imaging Report ---
Indication: Left lower quadrant and pelvic pain, positive test Technique: Transabdominal and transvaginal images Comparison: none Findings: Uterus measures 9.5 cm in length by 5.4 cm AP. Within the endometrium, there is a gestational sac. This contains a pole which demonstrates positive heart activity, heart rate 127 bpm. No evidence of subchorionic hemorrhage. The crown-rump length is 8 mm, corresponding to estimated gestational age of 6 weeks 5 days. There is also a yolk sac demonstrated. The right ovary measures 3.7 cm length. The left ovary measures 3.3 cm. No ovarian or adnexal mass. Normal ovarian blood flow is demonstrated. No myometrial abnormality. Fluid is seen in the pelvic cul-de-sac. Impression: 6 week 5 day, by crown-rump length measurement, single live intrauterine . No unusual features Small amount of free cul-de-sac fluid, presumably physiologic This agrees with the preliminary interpretation provided overnight by [facility] teleradiology service.
== END 2018-07-29 17:22 | disposition home or self-care (01) ==
LOC: EMR 15:52
DX: O26.91 Pregnancy related conditions, unspecified, first trimester (principal); R11.0 Nausea; Z3A.01 Less than 8 weeks gestation of pregnancy; R10.32 Left lower quadrant pain; Z88.6 Allergy status to analgesic agent; Z91.040 Latex allergy status
CPT/HCPCS: 36415; 76801; 76830; 80053; 81003; 83690; 84702; 85025; 85610; 85730; 86850; 86900; 86901; 99284

== ENCOUNTER 2018-08-05 11:10 | Emergency (ER) | payer OTHER ==
[~2018-08-05] VITALS: Ht 172.7 cm; Wt 55.8 kg
[~2018-08-05 11:10] MED LIST changes: +PYRIDOXINE HCL50 MG ORAL; +ZOFRAN4 M3 ORAL
[2018-08-05] MEDS ORDERED: NKM (11:23)
[2018-08-05] MEDS ORDERED: Metoclopramide 10mg/2ml Inj IVP ONE (11:30)
[2018-08-05 11:47] VITALS: BP 97/67
[2018-08-05 11:49] LABS: APPEARANCE,URINE CLEAR; BILIRUBIN, URINE NEGATIVE (NEGATIVE); GLUCOSE, URINE (UA) NEGATIVE (NEGATIVE); KETONES,URINE 3+ (NEGATIVE); LEUKOCYTE ESTERASE ,URINE 1+ (NEGATIVE); NITRITE,URINE NEGATIVE (NEGATIVE); PH,URINE 8 (4.5-8.0); PROTEIN,URINE 1+ (NEGATIVE); UROBILINOGEN,URINE NORMAL MG/DL (0.0-1.0)
--- NOTE | 2018-08-05 11:49 | NUR ---
ED Nurse Note: 7 weeks woman present at ER with c/o N/V/D since 0100 this morning. pt aao x4 and ambulatory but c/o weakness and dehydration due to vomiting too many times this morning. skin clean and intact. pt not vomiting at this moment.
[2018-08-05 11:50] LABS: HEMATOCRIT 37.7 % (37.0-47.0); MEAN CORPUSCULAR VOLUME 92 FL (80-99); PLATELET COUNT 164 K/UL (150-450); RED CELL DISTRIBUTION WIDTH 11.2 % (11.6-14.8); WHITE BLOOD COUNT 6.5 K/UL (4.8-10.8)
[2018-08-05 11:56] LABS: COLOR,URINE YELLOW
[2018-08-05 12:00] LABS: ANION GAP 9 mmol/L (5-15); BLOOD UREA NITROGEN 9 mg/dL (7-18); CALCIUM 8.6 MG/DL (8.5-10.1); CARBON DIOXIDE 26 MMOL/L (21-32); CHLORIDE 102 MMOL/L (98-107); CREATININE 0.8 MG/DL (0.55-1.30); SODIUM 137 MMOL/L (136-145)
[2018-08-05 12:05] LABS: ALANINE AMINOTRANSFERASE 16 U/L (12-78); ALBUMIN 3.5 G/DL (3.4-5.0); ALKALINE PHOSPHATASE 52 U/L (46-116); ASPARTATE AMINO TRANSFERASE 14 U/L (15-37); BILIRUBIN,TOTAL 0.6 MG/DL (0.2-1.0)
--- NOTE | 2018-08-05 12:10 | Emergency Room Report ---
History of Present Illness General Chief Complaint: Nausea, Vomiting, and Diarrhea Source: Patient Present Illness HPI Patient presents with complaints of vomiting and diarrhea Patient was recently here with abdominal cramping and discomfort reports that this was something completely different than that visit she has seen her primary OB physician several days ago a day after that patient began having increased vomiting followed by diarrhea Denies any vaginal bleeding denies any chest pain or shortness of breath questionable subjective fever Denies any focal weakness patient's approximately 7 weeks Allergies: Coded Allergies: CLINDAMYCIN (Verified Allergy, Unknown, 04/11/17) IBUPROFEN (Verified Allergy, Unknown, 04/11/17) LATEX (Verified Allergy, Unknown, 04/07/18) Patient History Past Medical History: see triage record Pertinent Family History: none Now: Yes - 7 weeks Reviewed Nursing Documentation: PMH: Agreed; PSxH: Agreed Nursing Documentation-PMH Past Medical History: No History, Except For Hx Asthma: Yes Review of Systems All Other Systems: negative except mentioned in HPI Physical Exam Vital Signs Date Time Temp Pulse Resp B/P (MAP) Pulse Ox O2 Delivery O2 Flow Rate FiO2 08/05/18 11:19 99.1 106 18 90/61 100 Room Air Sp02 EP Interpretation: reviewed, normal General Appearance: well appearing, no apparent distress Head: normocephalic, atraumatic Eyes: bilateral eye PERRL, bilateral eye EOMI ENT: hearing grossly normal, normal pharynx, TMs + canals normal, uvula midline Neck: full range of motion, supple, no meningismus, no bony tend Respiratory: lungs clear, normal breath sounds, no rhonchi, no respiratory distress, no retraction, no accessory muscle use Cardiovascular #1: normal peripheral pulses, regular rate, rhythm, no edema, no gallop, no JVD, no murmur Gastrointestinal: normal bowel sounds, non tender, soft, no mass, no organomegaly, non-distended, no guarding, no hernia, no pulsatile mass, no rebound Genitourinary: no CVA tenderness Musculoskeletal: normal inspection Neurologic: oriented x3, responsive, cheese pancake roller III-XII nml as tested, motor strength/ tone normal, sensory intact Psychiatric: mood/affect normal Skin: normal color, no rash, warm/dry, palpation normal Lymphatic: normal inspection, no adenopathy Medical Decision Making Diagnostic Impression: Primary Impression: Nausea, vomiting, and diarrhea ER Course With the patient's history and examination, multiple differentials considered, including but not limited to , ectopic , ovarian torsion, gastritis, cholecystitis, pancreatitis, appendicitis Patient has documented intrauterine there are no reports of any abdominal cramping or vaginal bleeding at this time repeat ultrasound was not warranted emergently Patient's blood work is appropriate Patient has done significantly better with acute intervention at this time is stable for initial conservative outpatient trial Labs Test 08/05/18 11:40 White Blood Count 6.5 K/UL (4.8-10.8) Red Blood Count 4.10 M/UL (4.20-5.40) Hemoglobin 13.0 G/DL (12.0-16.0) Hematocrit 37.7 % (37.0-47.0) Mean Corpuscular Volume 92 FL (80-99) Mean Corpuscular Hemoglobin 31.8 PG (27.0-31.0) Mean Corpuscular Hemoglobin Concent 34.6 G/DL (32.0-36.0) Red Cell Distribution Width 11.2 % (11.6-14.8) Platelet Count 164 K/UL (150-450) Mean Platelet Volume 6.4 FL (6.5-10.1) Neutrophils (%) (Auto) % (45.0-75.0) Lymphocytes (%) (Auto) % (20.0-45.0) Monocytes (%) (Auto) % (1.0-10.0) Eosinophils (%) (Auto) % (0.0-3.0) Basophils (%) (Auto) % (0.0-2.0) Differential Total Cells Counted 100 Neutrophils % (Manual) 91 % (45-75) Lymphocytes % (Manual) 7 % (20-45) Monocytes % (Manual) 2 % (1-10) Eosinophils % (Manual) 0 % (0-3) Basophils % (Manual) 0 % (0-2) Band Neutrophils 0 % (0-8) Platelet Estimate Adequate Platelet Morphology Normal Red Blood Cell Morphology Normal Urine Color Yellow Urine Appearance Clear Urine pH 8 (4.5-8.0) Urine Specific [place] 1.010 (1.005-1.035) Urine Protein 1+ (NEGATIVE) Urine Glucose (UA) Negative (NEGATIVE) Urine Ketones 3+ (NEGATIVE) Urine Blood Negative (NEGATIVE) Urine Nitrite Negative (NEGATIVE) Urine Bilirubin Negative (NEGATIVE) Urine Urobilinogen Normal MG/DL (0.0-1.0) Urine Leukocyte Esterase 1+ (NEGATIVE) Urine RBC 0-2 /HPF (0 - 2) Urine WBC 0-2 /HPF (0 - 2) Urine Squamous Epithelial Cells Moderate /LPF (NONE/OCC) Urine Bacteria Few /HPF (NONE) Sodium Level 137 MMOL/L (136-145) Potassium Level 4.0 MMOL/L (3.5-5.1) Chloride Level 102 MMOL/L (98-107) Carbon Dioxide Level 26 MMOL/L (21-32) Anion Gap 9 mmol/L (5-15) Blood Urea Nitrogen 9 mg/dL (7-18) Creatinine 0.8 MG/DL (0.55-1.30) Estimat Glomerular Filtration Rate > 60 mL/min (>60) Glucose Level 102 MG/DL (74-106) Calcium Level 8.6 MG/DL (8.5-10.1) Total Bilirubin 0.6 MG/DL (0.2-1.0) Aspartate Amino Transf (AST/SGOT) 14 U/L (15-37) Alanine Aminotransferase (ALT/SGPT) 16 U/L (12-78) Alkaline Phosphatase 52 U/L (46-116) Total Protein 6.9 G/DL (6.4-8.2) Albumin 3.5 G/DL (3.4-5.0) Globulin 3.4 g/dL Albumin/Globulin Ratio 1.0 (1.0-2.7) Lipase 88 U/L (73-393) Last Vital Signs Date Time Temp Pulse Resp B/P (MAP) Pulse Ox O2 Delivery O2 Flow Rate FiO2 08/05/18 11:47 98.4 88 18 97/67 100 Room Air Status: improved Disposition: HOME, SELF-CARE Condition: Improved Scripts Metoclopramide Hcl* (REGLAN*) 5 Mg Tablet 5 MG ORAL EVERY 12 HOURS, #10 TAB Prov: Pop Polanco DO 08/05/18 Referrals: [facility] (PCP) Additional Instructions: Patient is provided with the discharge instructions notified to follow up with primary doctor in the next 2-3 days otherwise return to the er with any worsening symptoms. Please note that this report is being documented using [employer] technology. This can lead to erroneous entry secondary to incorrect interpretation by the dictating instrument. Pop Polanco DO Aug 05, 2018 12:10
--- NOTE | 2018-08-05 12:21 | NUR ---
ED Nurse Note: Reported ERMD about BP getting low. will continue bolus after 1st bag. lowered the head of bed to elevate BP.
[2018-08-05] MEDS ORDERED: REGLAN5 MG ORAL (13:16)
[2018-08-05 13:29] VITALS: BP 102/78
--- NOTE | 2018-08-05 13:32 | NUR ---
ER DISCHARGE NOTE: Patient is cleared to be discharged per ERMD, accompanied by spouse, pt is aox4, on room air, with stable vital signs. pt was given dc and prescription instructions, pt was able to verbalize understanding, pt id band and iv site removed without complications. pt is able to ambulate with steady gait. pt took all belongings.
== END 2018-08-05 13:30 | disposition home or self-care (01) ==
LOC: EMR 11:59
DX: O21.9 Vomiting of pregnancy, unspecified (principal); R19.7 Diarrhea, unspecified; Z88.6 Allergy status to analgesic agent; Z88.8 Allergy status to other drugs, medicaments and biological substances; Z91.040 Latex allergy status; Z3A.01 Less than 8 weeks gestation of pregnancy
CPT/HCPCS: 36415; 80053; 81003; 83690; 85007; 85025; 96361; 96374; 99284; J2765

== ENCOUNTER 2019-02-11 14:24 | Emergency (ER) | payer OTHER ==
[~2019-02-11] VITALS: Ht 172.7 cm; Wt 72.1 kg
[~2019-02-11 14:24] MED LIST changes: +REGLAN5 MG ORAL
--- NOTE | 2019-02-11 15:30 | NUR ---
AMA: SEE AMA FORM.
--- NOTE | 2019-02-11 15:32 | Emergency Room Report ---
History of Present Illness General Chief Complaint: Complications Source: Patient, Medical Record Present Illness HPI 23-year-old female G1, P0, 34 weeks . She is presenting with intermittent abdominal cramping. She says that it is not that painful, does not feel to be contractions. She still feels good movement. Her last ultrasound was 1 month ago. No fever chills nausea vomiting diarrhea. The pain comes and goes its been that way for 2 days. Has no fluid leaking. No vaginal bleeding. Her has otherwise been uneventful she says. Allergies: Coded Allergies: CLINDAMYCIN (Verified Allergy, Unknown, 04/11/17) IBUPROFEN (Verified Allergy, Unknown, 04/11/17) LATEX (Verified Allergy, Unknown, 04/07/18) Patient History Past Medical History: see triage record Past Surgical History: none Pertinent Family History: none Last Menstrual Period: 06/12/18 Now: Yes - 34 1/2 wks : 1 Para: 0 Reviewed Nursing Documentation: PMH: Agreed; PSxH: Agreed Nursing Documentation-PMH Past Medical History: No History, Except For Hx Asthma: Yes Review of Systems All Other Systems: negative except mentioned in HPI Physical Exam Vital Signs Date Time Temp Pulse Resp B/P (MAP) Pulse Ox O2 Delivery O2 Flow Rate FiO2 02/11/19 14:56 98.1 98 18 106/67 (80) 99 Room Air Sp02 EP Interpretation: reviewed, normal General Appearance: normal inspection, well appearing, no apparent distress, alert, GCS 15, non-toxic Head: normocephalic, atraumatic Eyes: bilateral eye normal inspection, bilateral eye PERRL, bilateral eye EOMI ENT: normal ENT inspection, normal pharynx, normal voice, moist mucus membranes Neck: normal inspection, full range of motion, supple Respiratory: normal inspection, lungs clear, normal breath sounds, no respiratory distress, no retraction, no wheezing, speaking full sentences, chest symmetrical Cardiovascular #1: normal inspection, regular rate, rhythm, normal capillary refill Cardiovascular #2: 2+ radial (R), 2+ radial (L) Gastrointestinal: non tender, soft, no guarding, other - GRAVID Musculoskeletal: normal inspection, back normal, normal range of motion, non- tender Neurologic: normal inspection, alert, oriented x3, responsive, sensory intact, normal gait, speech normal Psychiatric: normal inspection, judgement/insight normal, memory normal Medical Decision Making Diagnostic Impression: Primary Impression: Abdominal cramping Additional Impression: ER Course 23-year-old female, 34 weeks . Abdominal cramping DDX: labor, UTI, placental abnormalities, other surgical pathologies although less likely she does not appear to be in severe pain at this time and she is nontender on her exam Plan: Obtain labs, ua, ucx, ultrasound ER course: Patient has remained stable during ED stay. I Explained to patient that we do not have [facility] services here. I offered to do a formal pelvic exam to see if she is dilated. I also offered to do blood work, pelvic ultrasound. And ultimately I let her know that I will have to call another hospital who does have [facility] services as well as heart monitoring to transfer her. Her and her partner said that they would just want to go straight to [facility] where they can just do everything all at once. I let them know that if they do not seek medical care immediately she could be in labor, or there could be another diagnosis that is causing her pain which could lead to significant morbidity and mortality. They understand this and they still want to leave. They seem very reliable, they said that they are going straight to [facility] right now. In the time that she was here, I had been talking to them for about 15 minutes, she never seemed to be in pain or in distress. She did not seem to be having any contractions either. She says that she was experiencing movement. She left AGAINST MEDICAL ADVICE Please note that this Emergency Department Report was dictated using [employer] machine operator technology software, occasionally this can lead to erroneous entry secondary to interpretation by the dictation equipment Last Vital Signs Date Time Temp Pulse Resp B/P (MAP) Pulse Ox O2 Delivery O2 Flow Rate FiO2 02/11/19 14:56 98.1 98 18 106/67 (80) 99 Room Air Disposition: AGAINST MEDICAL ADVICE Condition: Stable Additional Instructions: Patient leaving against medical advice. Patient will be going to another ER with heart monitoring abilities and OBGYN services. Vital signs are stable. Patient is not in distress. NOTE TO PROVIDER: 23YO F 34 WEEKS EXPERIENCING ABDOMINAL CRAMPING. WE HAD OFFERED TO PERFORM BASIC BLOOD TESTS AND PELVIC ULTRASOUND, HOWEVER PATIENT WOULD LIKE TO GO TO FACILITY WITH OBGYN SERVICES. PLEASE EVALUATE. Alice Wong M.D. Feb 11, 2019 15:32
[2019-02-11 17:14] VITALS: BP 106/67
== END 2019-02-11 15:30 | disposition left against medical advice (07) ==
LOC: EMR 15:26
DX: O26.893 Other specified pregnancy related conditions, third trimester (principal); Z3A.34 34 weeks gestation of pregnancy; R10.9 Unspecified abdominal pain; Z88.1 Allergy status to other antibiotic agents; Z88.8 Allergy status to other drugs, medicaments and biological substances; Z91.040 Latex allergy status; J45.909 Unspecified asthma, uncomplicated
CPT/HCPCS: 99282